=== PATIENT | female | born 1970 | race African-American/Black ===

== ENCOUNTER 2016-08-30 20:49 | Inpatient (IN) | payer OTHER ==
[~2016-08-30] VITALS: Ht 157.5 cm; Wt 89.4 kg
[2016-08-30] MEDS ORDERED: MORPHINE SULFATE 8 MG/ML INJ IV PUSH ONE ×2 (21:00→22:30)
[2016-08-30] MEDS ORDERED: TETANUS/DIPHTHERIA TOXOID ADULT 0.5 ML VIAL IM ONE (21:00)
--- NOTE | 2016-08-30 21:09 | PD ---
HPI Chief Complaint: Injury Time Seen by Provider: 20:53 Travel History International Travel<30 days: No (unknown) Contact w/Intl Traveler<30days: No (unknown) History of Present Illness HPI 45yo F with no significant PMH presents to the ED with digital amputation of left 2nd and 4th digit around half an hour ago. Pt was working at [employer] and there was a machine with a chain and her left hand was caught in it. Distal tip of 2nd and 4th digit was amputated and brought to the ED. Denies any other complaints. PFSH Social History Tobacco Use: No Allergies-Medications (Allergen,Severity, Reaction): Coded Allergies: Lisinopril (Verified Allergy, Severe, cough, 08/31/16) Reported Meds & Prescriptions Reported Meds & Active Scripts Active No Active Prescriptions or Reported Medications Review of Systems Except as stated in HPI: all other systems reviewed are Neg Physical Exam Narrative GENERAL: 45yo F in moderate distress. SKIN: Warm and dry. CARDIOVASCULAR: Regular rate and rhythm. No murmur appreciated. RESPIRATORY: No accessory muscle use. Clear to auscultation. Breath sounds equal bilaterally. GASTROINTESTINAL: Abdomen soft, non-tender, nondistended. MUSCULOSKELETAL: Left hand: +Distal amputation of 2nd and 4th digit with bone exposed right distal to the DIP in both joint. Pt is able to flex and extend DIP. Sensation intact. Radial pulse 2+. NEUROLOGICAL: Awake and alert. No obvious cranial nerve deficits. Motor grossly within normal limits. Normal speech. PSYCHIATRIC: Appropriate mood and affect; insight and judgment normal. Data Data Last Documented VS Vital Signs Date Time Temp Pulse Resp B/P Pulse Ox O2 Delivery O2 Flow Rate FiO2 08/30/16 22:35 20 08/30/16 21:27 99.0 93 167/76 100 Orders Morphine Inj (Morphine Inj) (08/30/16 21:00) Tetanus/Diphtheria Tox Adult (Tetanus/Di (08/30/16 21:00) Hand, Limited (2vws) (08/30/16 ) Complete Blood Count With Diff (08/30/16 21:41) Basic Metabolic Panel (Bmp) (08/30/16 21:41) Prothrombin Time / Inr (Pt) (08/30/16 21:41) Act Partial Throm Time (Ptt) (08/30/16 21:41) Type And Screen (08/30/16 21:41) Morphine Inj (Morphine Inj) (08/30/16 22:30) Cefazolin 2 Gm Premix (Ancef 2 Gm Premix (08/30/16 22:45) Admit Order (Ed Use Only) (08/30/16 23:15) Npo After Midnight W/ Po Meds (08/31/16 Breakfast) Labs Laboratory Tests Test 08/30/16 21:30 White Blood Count 10.6 TH/MM3 Red Blood Count 3.92 MIL/MM3 Hemoglobin 10.5 GM/DL Hematocrit 31.8 % Mean Corpuscular Volume 81.2 FL Mean Corpuscular Hemoglobin 26.8 PG Mean Corpuscular Hemoglobin 33.0 % Concent Red Cell Distribution Width 19.7 % Platelet Count 337 TH/MM3 Mean Platelet Volume 7.7 FL Neutrophils (%) (Auto) 61.3 % Lymphocytes (%) (Auto) 31.5 % Monocytes (%) (Auto) 5.0 % Eosinophils (%) (Auto) 1.8 % Basophils (%) (Auto) 0.4 % Neutrophils # (Auto) 6.5 TH/MM3 Lymphocytes # (Auto) 3.3 TH/MM3 Monocytes # (Auto) 0.5 TH/MM3 Eosinophils # (Auto) 0.2 TH/MM3 Basophils # (Auto) 0.0 TH/MM3 CBC Comment DIFF FINAL Differential Comment Prothrombin Time 10.8 SEC Prothromb Time International 1.0 RATIO Ratio Activated Partial 26.9 SEC Thromboplast Time Sodium Level 140 MEQ/L Potassium Level 3.5 MEQ/L Chloride Level 108 MEQ/L Carbon Dioxide Level 20.9 MEQ/L Anion Gap 11 MEQ/L Blood Urea Nitrogen 8 MG/DL Creatinine 0.83 MG/DL Estimat Glomerular Filtration 89 ML/MIN Rate Random Glucose 177 MG/DL Calcium Level 8.5 MG/DL Blood Type O POSITIVE Antibody Screen NEGATIVE Blood Bank Comment [facility] Medical Decision Making Medical Screen Exam Complete: Yes Emergency Medical Condition: Yes Differential Diagnosis Distal digit amputation Narrative Course 45yo F with distal digit amputation of left 2nd and 4th digit. Discussed with hand surgeon contract lead Dr. Zurita and he states that pt can be transferred to [place] for possibility of having her digits reimplanted or he amputate in OR here but will not reimplant digits. Discussed with patient and her family and she states that she does not want to be transferred to [place] and understands that she will have her digits amputated and not reimplanted. Pt is aware of that and wants to stay. As per Dr. Zurita, pt given ancef and admitted to hospitalist after xray. Xray of left hand showed fracture amputations of distal aspects of second and fourth digits. Labs reviewed, H/H low at 10.5/ 31.8. CO2 mildly decreased, pt has been hyperventilating. Pt is to be NPO after midnight and scheduled for OR at 3pm tomorrow. Discussed with Dr. Snow and accepted. Diagnosis Primary Impression: Amputation finger Qualified Code: S68.119A - Amputation finger, initial encounter Admitting Information Admitting Physician Requests: Admit Scripts No Active Prescriptions or Reported Meds Yumiko Bolivar DO Aug 30, 2016 21:09
[2016-08-30 21:25] VITALS: BP 167/76; PULSE 93; RESP 24; TEMP 99; O2SAT 100
[2016-08-30 21:27] VITALS: BP 167/76; PULSE 93; RESP 20; TEMP 99; O2SAT 100
[2016-08-30 22:09] LABS: AUTOMATED NEUTROPHIL # 6.5 TH/MM3 (1.8-7.7); BASOPHIL % 0.4 % (0.0-2.0); EOSINOPHIL # 0.2 TH/MM3 (0-0.4); EOSINOPHIL % 1.8 % (0.0-4.0); HEMATOCRIT 31.8 % (35.0-46.0); HEMO FLAGS DIFF FINAL; LYMPH % 31.5 % (9.0-44.0); LYMPHOCYTE # 3.3 TH/MM3 (1.0-4.8); MEAN CELL VOLUME 81.2 FL (80.0-100.0); MEAN CORPUSCULAR HEMOGLOBIN 26.8 PG (27.0-34.0); NEUT % 61.3 % (16.0-70.0); PLATELET COUNT 337 TH/MM3 (150-450); RED BLOOD COUNT 3.92 MIL/MM3 (4.00-5.30); RED CELL DISTRIBUTION WIDTH 19.7 % (11.6-17.2); WHITE BLOOD COUNT 10.6 TH/MM3 (4.0-11.0)
[2016-08-30 22:11] LABS: APTT (PATIENT) 26.9 SEC (24.3-30.1); PROTHROMBIN TIME - PATIENT 10.8 SEC (9.8-11.6)
[2016-08-30 22:23] LABS: BICARBONATE 20.9 MEQ/L (21.0-32.0); POTASSIUM 3.5 MEQ/L (3.5-5.1)
--- NOTE | 2016-08-30 22:40 | RADRPT ---
EXAM DATE/TIME: 08/30/2016 21:45 [facility] COMPARISON: No previous studies available for comparison. INDICATIONS: Left hand pain after getting the second and fourth digits caught in a machine at work today. MEDICAL HISTORY: Smoker. SURGICAL HISTORY: None. ENCOUNTER: Initial ACUITY: 1 day PAIN SCORE: 10/10 LOCATION: Left second and fourth digit. FINDINGS: There is amputation of the distal aspects of the second and fourth distal phalanges. These fractures /amputations involve the gabe. There is also fracturing of the proximal lateral aspect of the fourt h distal phalanx. CONCLUSION: Fracture amputations of the distal aspects of the second and fourth digits. Emigdio Parekh MD on August 30, 2016 at 22:09 Board Certified Radiologist. This report was verified electronically.
[2016-08-30] MEDS ORDERED: ceFAZolin 2 GM PREMIX 50 ML IV ONE (22:45)
[2016-08-30] MEDS ORDERED: NALOXONE HCL 0.4 MG/ML AMP IV PRN (23:15)
[2016-08-30] MEDS ORDERED: ONDANSETRON HCL 4 MG/2 ML VIAL IVP PRN (23:15)
[2016-08-30] MEDS ORDERED: SODIUM CHLORIDE 0.9% FLUSH 5 ML FLUSH FLUSH PRN (23:15)
[2016-08-30] MEDS: SODIUM CHLOR 0.9% 1000 ML INJ 1,000 ML IV SCH (23:15)
[2016-08-31] VITALS (9 sets, daily range): BP systolic 130–177; BP diastolic 66–103; PULSE 75–90; RESP 2–20; TEMP 97.1–98.6; O2SAT 90–100
[2016-08-31] MEDS: HYDROmorphone HCL PF 1 MG/ML VIAL IV PUSH PRN ×8 (01:02→23:39)
[2016-08-31] MEDS: diphenhydrAMINE HCL 50 MG/ML VIAL IV PUSH PRN ×3 (01:21→23:39)
--- NOTE | 2016-08-31 04:07 | HHI.HP ---
[facility] Physician No Primary Care Physician Admission Diagnosis Amputation of distal 2nd and 4th digit Diagnoses: Chief Complaint: amputation of distal 2nd and 4th finger Travel History International Travel<30 Days: No Contact w/Intl Traveler <30 Da: No Traveled to Known Affected Are: No History of Present Illness History taken from patient and ED physician 45 y/o female with a history of htn (currently not on medication) presented to the ED after have an accident at work involving amputation of her 2nd and 4th digit on left hand. Patient states she was working a machine at work and she felt pain in fingers and realized she was missing the tips of her two fingers. She states she is still having throbbing pain in her left hand and denies any associated symptoms. She denies any chest pain, sob, fever or chills. Patient states she stopped taking her blood pressure medication because she developed a Review of Systems Constitutional: DENIES: Fever, Chills Respiratory: DENIES: Cough, Sputum production, Shortness of breath Cardiovascular: DENIES: Chest pain, Lower Extremity Edema Gastrointestinal: DENIES: Abdominal pain, Constipation, Diarrhea, Nausea, Vomiting Genitourinary: COMPLAINS OF: Hematuria, Dysuria Musculoskeletal: COMPLAINS OF: Joint pain, DENIES: Back pain, Neck pain Integumentary: DENIES: Rash Hematologic/lymphatic: DENIES: Lymphadenopathy Immunologic/allergic: DENIES: Urticaria Neurologic: DENIES: Headache Past Family Social History Past Medical History HTN Past Surgical History Tubal ligation Reported Medications Reported Meds & Active Scripts Active No Active Prescriptions or Reported Medications Allergies: Coded Allergies: Lisinopril (Verified Allergy, Severe, cough, 08/31/16) Active Ordered Medications Current Medications Medications (Trade) Dose Ordered Sig/Vin Route Start Time Stop Time Status Last Admin (NS 1000 ml Inj) 1,000 ml @ 100 mls/hr Q10H IV 08/30/16 23:15 08/30/16 23:15 (NS Flush) 2 ml UNSCH PRN FLUSH 08/30/16 23:15 (NS Flush) 2 ml BID FLUSH 08/31/16 09:00 (Zofran Inj) 4 mg Q6H PRN IVP 08/30/16 23:15 08/31/16 01:03 (Narcan Inj) 0.4 mg UNSCH PRN IV 08/30/16 23:15 Hydromorphone HCl 1 mg 1 mg Q3HR PRN IV PUSH 08/30/16 23:15 08/31/16 03:36 (Ancef Inj/NS Inj) 100 ml @ 200 mls/hr Q8HR IV 08/31/16 06:00 (Benadryl Inj) 25 mg Q6H PRN IV PUSH 08/31/16 01:15 08/31/16 01:21 Family History Family history significant for lung cancer and prostate cancer Social History Tobacco use: one cigarette a day Alcohol use: denies Illicit drug use: denies Physical Exam Vital Signs Vital Signs Date Time Temp Pulse Resp B/P Pulse Ox O2 Delivery O2 Flow Rate FiO2 08/31/16 03:32 76 20 147/103 99 08/31/16 02:22 16 08/31/16 00:58 83 20 177/81 97 08/30/16 22:35 20 08/30/16 21:30 20 08/30/16 21:27 99.0 93 20 167/76 100 08/30/16 21:25 99.0 93 24 167/76 100 08/30/16 21:18 93 24 100 Physical Exam GENERAL: This is a well-nourished, well-developed patient, in no apparent distress. SKIN: No rashes, ecchymoses or lesions. Cool and dry. HEAD: Atraumatic. Normocephalic. No temporal or scalp tenderness. EYES: Pupils equal round and reactive. Extraocular motions intact. No scleral icterus. No injection or drainage. ENT: Nose without bleeding, purulent drainage or septal hematoma. Throat without erythema, tonsillar hypertrophy or exudate. Uvula midline. Airway patent. NECK: Trachea midline. No JVD or lymphadenopathy. Supple, nontender, no meningeal signs. CARDIOVASCULAR: Regular rate and rhythm without murmurs, gallops, or rubs. RESPIRATORY: Clear to auscultation. Breath sounds equal bilaterally. No wheezes , rales, or rhonchi. GASTROINTESTINAL: Abdomen soft, non-tender, nondistended. No hepato-splenomegaly , or palpable masses. No guarding. MUSCULOSKELETAL: Extremities without clubbing, cyanosis, or edema. No joint tenderness, effusion, or edema noted. No calf tenderness. Negative Homans sign bilaterally. NEUROLOGICAL: Awake and alert. Cranial nerves II through XII intact. Motor and sensory grossly within normal limits. Five out of 5 muscle strength in all muscle groups. Normal speech. Laboratory Laboratory Tests Test 08/30/16 21:30 White Blood Count 10.6 Red Blood Count 3.92 Hemoglobin 10.5 Hematocrit 31.8 Mean Corpuscular Volume 81.2 Mean Corpuscular Hemoglobin 26.8 Mean Corpuscular Hemoglobin 33.0 Concent Red Cell Distribution Width 19.7 Platelet Count 337 Mean Platelet Volume 7.7 Neutrophils (%) (Auto) 61.3 Lymphocytes (%) (Auto) 31.5 Monocytes (%) (Auto) 5.0 Eosinophils (%) (Auto) 1.8 Basophils (%) (Auto) 0.4 Neutrophils # (Auto) 6.5 Lymphocytes # (Auto) 3.3 Monocytes # (Auto) 0.5 Eosinophils # (Auto) 0.2 Basophils # (Auto) 0.0 CBC Comment DIFF FINAL Differential Comment Prothrombin Time 10.8 Prothromb Time International 1.0 Ratio Activated Partial 26.9 Thromboplast Time Sodium Level 140 Potassium Level 3.5 Chloride Level 108 Carbon Dioxide Level 20.9 Anion Gap 11 Blood Urea Nitrogen 8 Creatinine 0.83 Estimat Glomerular Filtration 89 Rate Random Glucose 177 Calcium Level 8.5 Blood Type O POSITIVE Antibody Screen NEGATIVE Blood Bank Comment Result Diagram: 08/30/16212908/30/162129 Imaging Last Impressions Hand X-Ray 08/30/16 0000 Signed Impressions: Service Date/Time: Tuesday, August 30, 2016 21:45 - CONCLUSION: Fracture amputations of the distal aspects of the second and fourth digits. Emigdio Parekh MD Assessment and Plan Problem List: (1) Amputation finger ICD Code: S68.119A Status: Acute (2) HTN (hypertension) ICD Code: I10 Status: Chronic Assessment and Plan 45 y/o female with a history of HTN presented with: Amputation of 2nd and 4th digit on left hand Images: Hand x-ray shows fracture amputations of the distal aspects of the second and fourth digits. -Consult hand surgery -Ancef IV q8h -Pain management with IV Dilaudid -NPO and IVF NS@100ml/hr Hypertension, chronic -Monitor vitals DVT prophylaxis: scds Written by Kiara THOMPSON, acting as scribe for Dr. Snow on 08/31/16 at 0400. The documentation accurately reflects the work performed [id number] and decisions made by me and the physician Dr Snow on 08/31/16. The documentation accurately reflects the work performed [id number] by me on at 0400 Discussed Condition With Patient and ED physician Physician Certification 2 Midnight Certification Type: Admission for Inpatient Services Order for Inpatient Services The services are ordered in accordance with Medicare regulations or non- Medicare payer requirements, as applicable. In the case of services not specified as inpatient-only, they are appropriately provided as inpatient services in accordance with the 2-midnight benchmark. Estimated LOS (days): 2 days is the estimated time the patient will need to remain in the hospital, assuming treatment plan goals are met and no additional complications. Post-Hospital Plan: Home Problem Qualifiers (1) Amputation finger: Qualified Code: S68.119A - Amputation finger, initial encounter Kiara Cedillo Aug 31, 2016 04:07 Fredy Snow MD Aug 31, 2016 08:37
[2016-08-31] MEDS: SODIUM CHLORIDE 0.9% FLUSH 5 ML FLUSH FLUSH SCH ×2 (08:59→19:58)
[2016-08-31] MEDS: LORazepam 1 MG TAB PO PRN ×2 (10:08→19:59)
[2016-08-31] MEDS ORDERED: NEOSTIGMINE METHYLSULFATE 10 MG/10 ML VIAL IV PUSH ONE (12:00)
[2016-08-31] MEDS ORDERED: PROPOFOL 200 MG/20 ML AMP IV ONE (12:00)
[2016-08-31] MEDS ORDERED: ONDANSETRON HCL 4 MG/2 ML VIAL IV PUSH ONE (12:00)
[2016-08-31] MEDS: SODIUM CHLOR 0.9% 1000 ML INJ 1,000 ML IV SCH ×2 (12:22→19:58)
[2016-08-31] MEDS ORDERED: HYDROmorphone HCL PF 2 MG/ML VIAL IV ONE (14:30)
--- NOTE | 2016-08-31 15:01 | HHI.PR ---
Addendum to Inpatient Note Additional Information Patient seen and examined, she stated she just saw the hand surgeon, and he will take her to surgery in few minutes She wants to increase her pain medication since it's not touching her pain Flavia Mcwilliams MD Aug 31, 2016 15:01
--- NOTE | 2016-08-31 15:25 | MB ---
cc: AMEE WHELAN MD DATE OF CONSULTATION: 08/31/2016 REASON FOR CONSULTATION Amputation left index and ring fingers. HISTORY OF PRESENT ILLNESS The patient is a 45-year-old female right-hand dominant with a smoking history presenting with complaints of amputation of the left index and ring fingers yesterday. The patient was working at [employer] and her left ring and index finger were caught in a machine resulting in amputation. She came in with the distal tips of the second and fourth digit which was brought in an ice pack. She complains of pain over the region. She also complains of bleeding from the region. PAST MEDICAL/SURGICAL HISTORY Her past medical and surgical history are noted and not significant. PHYSICAL EXAMINATION Examination of the left hand reveals a dressing across the index and ring fingers. Examination after removal of dressing reveals an avulsion type of amputation involving the distal tip of the index finger. There was an oblique laceration with exposed distal phalanx. This extends from the PIP joint on the ulnar aspect of the middle of the distal phalanx on the radial aspect. On the dorsal aspect no evidence of nail plate or nail bed noted. The laceration extends almost to the DIP joint with exposed distal phalanx. She is able to partially flex the DIP joint of the index finger. Examination of the left ring finger shows an oblique amputation through the distal phalanx extending from the DIP joint on the ulnar aspect to the middle of the distal phalanx on the radial aspect with exposed distal phalanx on the volar aspect. The whole of the pulp remains amputated in an avulsion type injury with exposed distal phalanx. She is able to actively flex the DIP joint partially. No evidence of active oozing noted. IMAGING X-rays of the left hand were reviewed and show amputation through the distal tuft of the index and ring fingers with soft tissue defect. ASSESSMENT A 45-year-old female with amputation through the distal phalanx of the ring and index finger with avulsion of the soft tissues. PLAN The plan will be to take the patient emergently to the OR for wash, exploration and revision amputation possibly through the PIP joint, possibly flap closure. The patient has been explained the risks and benefits of the procedure. Amee Whelan MD SE/ADELAIDE /2:38 PM /3:15 PM MTDThomas
[2016-08-31] MEDS ORDERED: FAMOTIDINE 20 MG/2 ML VIAL ONE (15:42)
[2016-08-31] MEDS ORDERED: fentaNYL CITRATE 250 MCG/5 ML AMP ONE (15:47)
[2016-08-31] MEDS ORDERED: LIDOCAINE HCL 2% 50 ML VIAL ONE (16:14)
[2016-08-31] MEDS ORDERED: BUPIVACAINE HCL PF 0.5% 30 ML VIAL ONE (16:14)
[2016-08-31] MEDS ORDERED: BACITRACIN TOP OINT 15 GM TUBE ONE (16:14)
[2016-08-31] MEDS ORDERED: NEOMYCIN/POLYMYXIN 1 ML G.U. IRRIGANT IR ONE (16:43)
[2016-08-31] MEDS ORDERED: DO NOT ADM ANY ANTICOAGULANT DRUGS XX PRN (18:00)
--- NOTE | 2016-08-31 18:00 | PD.OP ---
Operative Report Preoperative Diagnosis: (1) Traumatic amputation of left index finger (2) Traumatic amputation of left ring finger Postoperative Diagnosis: (1) Traumatic amputation of left index finger (2) Traumatic amputation of left ring finger Procedure: revision amputation and flap closure left index finger revision amputation and partial closure left ring finger Surgeon: Rafael Zurita Master Ship(s): patel Operation and Findings: amputation through distal phalanx with soft tissue loss pulp from DIP crease distally left index finger amputation through distal phalanx with soft tissue loss pulp left ring finger Rafael Zurita MD Aug 31, 2016 18:00
[2016-08-31] MEDS ORDERED: *RESP: ALBUTEROL 2.5 MG/3 ML NEB (PRN) PERIprocedural Use ONLY NEB ONE (18:14)
[2016-09-01] VITALS (8 sets, daily range): BP systolic 138–184; BP diastolic 70–96; PULSE 89–97; RESP 18–22; TEMP 97.3–98.6; O2SAT 80–98
[2016-09-01] MEDS: HYDROmorphone HCL PF 1 MG/ML VIAL IV PUSH PRN ×8 (01:49→21:02)
[2016-09-01] MEDS: LORazepam 1 MG TAB PO PRN ×3 (04:30→21:05)
[2016-09-01] MEDS: SODIUM CHLOR 0.9% 1000 ML INJ 1,000 ML IV SCH ×2 (04:30→16:12)
[2016-09-01] MEDS: SODIUM CHLORIDE 0.9% FLUSH 5 ML FLUSH FLUSH SCH ×2 (07:53→21:00)
[2016-09-01] MEDS: oxyCODONE/ACETAMINOPHEN 5 MG/325 MG TAB PO PRN ×3 (08:50→19:35)
[2016-09-01] MEDS: amLODIPine BESYLATE 5 MG TAB PO SCH (16:12)
[2016-09-01] MEDS ORDERED: BACITRACIN OINT 0.9 GM PKT TOP PRN (17:30)
--- NOTE | 2016-09-01 17:42 | HHI.PR ---
Subjective Remarks complains of pain no fever Objective Vital Signs Date Time Temp Pulse Resp B/P Pulse Ox O2 Delivery O2 Flow Rate FiO2 09/01/16 15:50 98.0 89 20 138/82 97 09/01/16 14:05 160/88 80 09/01/16 11:30 97.8 94 20 184/84 97 09/01/16 09:22 98 21 09/01/16 08:58 98.6 92 20 163/88 98 09/01/16 04:00 97.3 94 18 147/89 96 09/01/16 02:47 18 09/01/16 02:47 18 09/01/16 00:00 97.6 97 18 148/70 97 08/31/16 20:00 97.9 90 18 132/90 96 08/31/16 18:40 97.9 79 16 96 Nasal Cannula 3 08/31/16 18:30 85 15 124/73 95 Nasal Cannula 3 08/31/16 18:15 84 15 128/75 97 Aerosol Mask 15 08/31/16 18:00 84 13 111/67 97 Simple Mask 8 08/31/16 17:59 97.8 81 13 109/67 99 Simple Mask 8 I/O 08/31/16 08/31/16 08/31/16 09/01/16 09/01/16 09/01/16 07:00 15:00 23:00 07:00 15:00 23:00 Intake Total 0 ml 1300 ml 1777 ml 759 ml 720 ml Output Total 25 ml 3 ml Balance 0 ml 1275 ml 1777 ml 759 ml 717 ml Intake Oral 0 ml 600 ml 480 ml 720 ml IV Total 1297 ml 759 ml Other 700 ml Output Urine Total 3 ml Estimated Blood Loss 25 ml # Voids 1 2 1 # Bowel Movements 0 0 examination of left hand reveals dressing in place patient is able to wiggle her fingers Result Diagram: 08/30/16212908/30/162129 Assessment and Plan Assessment and Plan 45 year old female s/p revision amputation left index and left ring fingers POD 1 patient is cleared for discharge from hand surgery keep the part elevated Can be discharged home on po antibiotics and pain meds follow up in office next week tue or wed, call [phone] for appointment Rafael Zurita MD Sep 01, 2016 17:42
[2016-09-01] MEDS ORDERED: TEMAZEPAM 7.5 MG CAP PO PRN (22:00)
[2016-09-01] MEDS: oxyCODONE/ACETAMINOPHEN 10 MG/325 MG TAB PO PRN (22:15)
[2016-09-01] MEDS: cloNIDine HCL 0.1 MG TAB PO PRN (23:44)
[2016-09-02] VITALS: BP 186/81; PULSE 81; RESP 16; TEMP 97.3; O2SAT 98
[2016-09-02] MEDS: oxyCODONE/ACETAMINOPHEN 10 MG/325 MG TAB PO PRN ×3 (02:28→10:00)
[2016-09-02 04:00] VITALS: BP 166/97; PULSE 81; RESP 18; TEMP 97.4; O2SAT 98
[2016-09-02] MEDS: LORazepam 1 MG TAB PO PRN (06:07)
[2016-09-02] MEDS: SODIUM CHLOR 0.9% 1000 ML INJ 1,000 ML IV SCH (06:07)
[2016-09-02 08:00] VITALS: PULSE 89; RESP 18; TEMP 96.4; O2SAT 96
[2016-09-02] MEDS ORDERED: OXYC1TAB36 PO (08:52)
[2016-09-02] MEDS ORDERED: AMLO5 PO ×2 (08:52→10:03)
[2016-09-02] MEDS ORDERED: BACI500O2 TOP (08:52)
[2016-09-02] MEDS: SODIUM CHLORIDE 0.9% FLUSH 5 ML FLUSH FLUSH SCH (09:00)
[2016-09-02] MEDS: amLODIPine BESYLATE 5 MG TAB PO SCH (09:00)
[2016-09-02] MEDS ORDERED: CEPH-460 PO (09:55)
[2016-09-02] MEDS: cloNIDine HCL 0.1 MG TAB PO PRN (10:07)
--- NOTE | 2016-09-02 10:07 | HHI.PR ---
Subjective Remarks delayed entry from 09/01/16 pt seen and examined , she is in pain , not amnebale to dilauded and percocet , she asked to increase the dilaudid hand sx ff no f/c Objective Vitals Vital Signs Date Time Temp Pulse Resp B/P Pulse Ox O2 Delivery O2 Flow Rate FiO2 09/02/16 04:00 97.4 81 18 166/97 98 09/02/16 00:00 97.3 81 16 186/81 98 09/01/16 20:00 97.6 94 22 162/96 97 09/01/16 15:50 98.0 89 20 138/82 97 09/01/16 14:05 160/88 80 09/01/16 11:30 97.8 94 20 184/84 97 I/O 09/01/16 09/01/16 09/01/16 09/02/16 09/02/16 09/02/16 07:00 15:00 23:00 07:00 15:00 23:00 Intake Total 1777 ml 759 ml 1200 ml 480 ml 1406 ml Output Total 3 ml Balance 1777 ml 759 ml 1197 ml 480 ml 1406 ml Intake Oral 480 ml 1200 ml 480 ml IV Total 1297 ml 759 ml 1406 ml Output Urine Total 3 ml # Voids 2 2 # Bowel Movements 0 Result Diagram: 08/30/16212908/30/162129 Objective Remarks GENERAL: This is a well-nourished, well-developed patient, in no apparent distress. SKIN: No rashes, warm and dry HEAD: Atraumatic. Normocephalic. EYES: Pupils equal round and reactive. Extraocular motions intact. No scleral icterus. ENT: Nose without bleeding, or drainage, Airway patent. NECK: Trachea midline. Supple CARDIOVASCULAR: Regular rate and rhythm without murmurs, gallops, or rubs. RESPIRATORY: Fair air entry bilaterally. No wheezes, rales, or rhonchi. GASTROINTESTINAL: Abdomen soft, non-tender, nondistended. Positive bowel sounds MUSCULOSKELETAL lower: Extremities without clubbing, cyanosis, or edema. Pedal pulses appreciated, left hand in gauze NEUROLOGICAL: Awake and alert. Moves all extremity. Normal speech.no focal neurological deficit A/P Problem List: (1) Amputation finger ICD Code: S68.119A Status: Acute (2) HTN (hypertension) ICD Code: I10 Status: Chronic Assessment and Plan 45 y/o female with a history of HTN presented with: Amputation of 2nd and 4th digit on left hand Images: Hand x-ray shows fracture amputations of the distal aspects of the second and fourth digits. hand surgery consulted status post repair flap, Ancef IV q8h, Pain management with IV Dilaudid, IVF NS@100ml/hr Hypertension, chronic -Patient stated she has been on GIANCARLO inhibitor and arms but she stopped them due to cough and other side effects, we start her on amlodipine and adjust DVT prophylaxis: scds Problem Qualifiers (1) Amputation finger: Qualified Code: S68.119A - Amputation finger, initial encounter Flavia Mcwilliams MD Sep 02, 2016 10:07
--- NOTE | 2016-09-02 10:09 | HHI.DS ---
Discharge Summary Admission Date Aug 30, 2016 at 23:17 Discharge Date: Sep 02, 2016 Admitting Diagnosis Amputation of distal 2nd and 4th digit (1) Amputation finger ICD Code: S68.119A (2) HTN (hypertension) ICD Code: I10 Procedures Left digits surgical or tear with flap post amputation Brief History - From Admission History taken from patient and ED physician 45 y/o female with a history of htn (currently not on medication) presented to the ED after have an accident at work involving amputation of her 2nd and 4th digit on left hand. Patient states she was working a machine at work and she felt pain in fingers and realized she was missing the tips of her two fingers. She states she is still having throbbing pain in her left hand and denies any associated symptoms. She denies any chest pain, sob, fever or chills. Patient states she stopped taking her blood pressure medication because she developed a CBC/BMP: 08/30/16212908/30/162129 Significant Findings Laboratory Tests Test 08/30/16 21:30 Red Blood Count 3.92 MIL/MM3 (4.00-5.30) Hemoglobin 10.5 GM/DL (11.6-15.3) Hematocrit 31.8 % (35.0-46.0) Mean Corpuscular Hemoglobin 26.8 PG (27.0-34.0) Red Cell Distribution Width 19.7 % (11.6-17.2) Chloride Level 108 MEQ/L (98-107) Carbon Dioxide Level 20.9 MEQ/L (21.0-32.0) Random Glucose 177 MG/DL (74-106) PE at Discharge GENERAL: This is a well-nourished, well-developed patient, in no apparent distress. SKIN: No rashes, warm and dry HEAD: Atraumatic. Normocephalic. EYES: Pupils equal round and reactive. Extraocular motions intact. No scleral icterus. ENT: Nose without bleeding, or drainage, Airway patent. NECK: Trachea midline. Supple CARDIOVASCULAR: Regular rate and rhythm without murmurs, gallops, or rubs. RESPIRATORY: Fair air entry bilaterally. No wheezes, rales, or rhonchi. GASTROINTESTINAL: Abdomen soft, non-tender, nondistended. Positive bowel sounds MUSCULOSKELETAL lower: Extremities without clubbing, cyanosis, or edema. Pedal pulses appreciated, left hand in gauze NEUROLOGICAL: Awake and alert. Moves all extremity. Normal speech.no focal neurological deficit Hospital Course 45 y/o female with a history of HTN presented with: Amputation of 2nd and 4th digit on left hand Images: Hand x-ray shows fracture amputations of the distal aspects of the second and fourth digits. hand surgery consulted status post repair flap, Ancef IV q8h, Pain management with IV Dilaudid, IVF NS@100ml/hr next line patient cleared by hand surgeon to be discharged home to follow up as an outpatient Hypertension, chronic -Patient stated she has been on GIANCARLO inhibitor and arms but she stopped them due to cough and other side effects, we start her on amlodipine and adjust DVT prophylaxis: scds Pt Condition on Discharge: Stable Discharge Disposition: Discharge Home Discharge Time: <= 30 minutes Discharge Instructions DIET: Follow Instructions for: As Tolerated, No Restrictions Activities you can perform: Regular-No Restrictions Flavia Mcwilliams MD Sep 02, 2016 10:09
[2016-09-02] MEDS ORDERED: amLODIPine BESYLATE 5 MG TAB PO ONE (10:15)
[2016-09-02 12:48] VITALS: BP_SYST 125; BP_SYST 136; BP_DIAS 74; BP_DIAS 87
--- NOTE | 2016-09-03 10:01 | MP ---
cc: RAFAEL WHELAN MD DATE OF SURGERY: 08/31/2016 PREOPERATIVE DIAGNOSIS Traumatic amputation left index finger and traumatic amputation left ring finger. POSTOPERATIVE DIAGNOSIS Traumatic amputation left index finger and traumatic amputation left ring finger. PROCEDURE Revision amputation and flap closure left index finger, and revision amputation and partial closure of left ring finger. SURGEON Dr. Whelan ANESTHESIA General ESTIMATED BLOOD LOSS Minimal TOURNIQUET TIME 51 minutes at 250 mmHg. DISPOSITION To PACU stable. INDICATION The patient is a 45-year-old right-hand dominant female who presented to the ED with traumatic amputation of the left index and ring fingers at her workplace yesterday. She had complete avulsion of the soft tissue from distal to the DIP joint involving the ring and the index finger. Part of the lateral soft tissues on the radial aspect of the index and ring fingers were intact. The distal phalanx was exposed with avulsion of the pulp and nail plate and the nail bed involving both fingers. X-ray showed amputation through the distal tuft of the index and ring finger. She was consented for revision amputation, possible flap closure left index and ring finger. She was explained the risks and benefits of the procedure. She is also a smoker. PROCEDURE IN DETAIL The patient was brought to the operating room under general anesthesia. The left upper extremity was thoroughly prepped and draped. Tourniquet was inflated to 250 mmHg after limb exsanguination using Esmarch tourniquet. Findings on the index finger included exposed distal phalanx with loss of pulp from distal to the DIP crease distally with complete avulsion of the nail plate and a partial avulsion of the nail bed. Part of the soft tissues on the lateral aspect were intact up to the mid distal phalanx level. Decision was made to proceed with revision amputation. The nail bed was ablated completely. Rongeur was used to trim the bone to the base of the distal phalanx. To provide soft tissue coverage of the bone, lateral V-Y plasty was carried out. Incision was made in the V fashion on the radial aspect of the index finger extending to the DIP joint crease. Soft tissue dissection was carried out mobilizing the flap. The bands were sharply dissected. Neurovascular bundle was protected. Following this I was able to obtain coverage of the exposed bone part of the wound. The ulnar aspect was still uncovered but no exposed bone was noted. A thorough wash was given with normal saline mixed with irrigant. Initially the soft tissue was covered over the end of the bone and the flap was mobilized and anchored to the ulnar aspect with multiple 4-0 chromic catgut stitches. The V was then converted into Y with multiple 4-0 chromic catgut sutures. Attention was then directed to the ring finger. Findings included exposed distal phalanx with loss of volar pulp and part of the nail bed along with the nail plate. Part of the radial aspect of the ring finger was still preserved to the mid distal phalanx. Nail bed was ablated. Using rongeur the distal phalanx was rongeured to the base of the distal phalanx. After thorough wash the flap of soft tissue was mobilized in a lateral to medial fashion and was used to cover the exposed distal phalanx. The skin was then approximated over the region. The bone was completely covered with soft tissue. She still had exposed wound on the volar and ulnar aspect of the finger. This was then held in place with multiple 4-0 chromic catgut stitches. Tourniquet was deflated. Total tourniquet time was 51 minutes. She had good distal circulation over the finger and the flap had delayed capillary refill. Warm saline was used to improve the circulation. Bacitracin and Xeroform dressing was applied over the region and distal block was carried out using 2% lidocaine and 1% Marcaine 48 cc was used. A finger dressing was applied with 4x4s and was held in a Mani. She was recovered and sent to the Recovery Room in stable condition. We will continue with antibiotics for another 24 hours and then plan for discharge tomorrow with p.o. antibiotics and p.o. pain medication. Rafael Whelan MD SE/LISA /6:03 PM /9:10 AM EMETERIO
== END 2016-09-02 11:56 | disposition home or self-care (01) | DRG 906 ==
LOC: NEPA 20:49 → NEDA 23:17 → NEDH 08-31 03:20 → HOCB 08-31 05:56
PROVIDERS: ADMIT Hospitalist; ATTEND Hospitalist
PROC: 0X6T0Z3 Detachment at Left Ring Finger, Low, Open Approach (ICD-10-PCS; 2016-08-31)
PROC: 0X6P0Z3 Detachment at Left Index Finger, Low, Open Approach (ICD-10-PCS; principal; 2016-08-31 15:45)
DX: S68.621A Partial traumatic transphalangeal amputation of left index finger, initial encounter (principal); S68.625A Partial traumatic transphalangeal amputation of left ring finger, initial encounter; W31.89XA Contact with other specified machinery, initial encounter; Y92.63 Factory as the place of occurrence of the external cause; Y99.0 Civilian activity done for income or pay; I10 Essential (primary) hypertension; Z72.0 Tobacco use
CPT/HCPCS: 73120; 80048; 85025; 85610; 85730; 86850; 86900; 86901; 90471; 90714; 94664; 96365; 96375; 96376; J0690; J1170; J1200; J2270; J2405; J2710; J3010; J7030; J7613